=== PATIENT | female | born 2000 | race African-American/Black ===

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

== ENCOUNTER 2019-02-03 19:20 | Emergency (ER) | payer OTHER ==
[~2019-02-03] VITALS: Ht 175.3 cm; Wt 77.6 kg
[~2019-02-03 19:20] MED LIST changes: +NOHOMEMEDICATIONS
[2019-02-03 21:25] VITALS: BP 110/54
[2019-02-03] MEDS ORDERED: NAPROSYN500 MG PO (21:50)
[2019-02-03] MEDS ORDERED: AMOXICILLIN 50500 MG PO (21:50)
== END 2019-02-03 22:33 | disposition home or self-care (01) ==
LOC: ER 19:20
DX: B00.2 Herpesviral gingivostomatitis and pharyngotonsillitis (principal)

== ENCOUNTER 2019-07-01 08:56 | Emergency (ER) | payer OTHER ==
[~2019-07-01] VITALS: Ht 175.3 cm; Wt 75.3 kg
[~2019-07-01 08:56] MED LIST changes: +AMOXICILLIN 50500 MG PO; +NAPROSYN500 MG PO
[2019-07-01 09:58] LABS: URINE BILIRUBIN NEGATIVE (Negative); URINE BLOOD TRACE (Negative); URINE CLARITY CLOUDY; URINE COLOR YELLOW; URINE GLUCOSE-RANDOM* NEGATIVE (Negative); URINE KETONES NEGATIVE (Negative); URINE NITRITE-REFLEX NEGATIVE (Negative); URINE PROTEIN (DIPSTICK) NEGATIVE (Negative); URINE UROBILINOGEN 0.2 E.U./dl (0.2-1.0)
[2019-07-01 09:59] LABS: URINE LEUKOCYTES-REFLEX 2+ (Negative)
[2019-07-01 10:08] LABS: SQUAMOUS >10 Many /LPF (0-3)
[2019-07-01 10:09] LABS: CASTS None Seen /LPF (None Seen); CRYSTALS None Seen /LPF (None Seen); URINE RBC None Seen /HPF (0-2); URINE WBC-REFLEX 0-5 Rare /HPF (0-5)
[2019-07-01] MEDS ORDERED: PREDNISONE 20 M20 M1 PO (11:18)
[2019-07-01 11:41] VITALS: BP 111/65
== END 2019-07-01 11:42 | disposition home or self-care (01) ==
LOC: ER 08:56
PROVIDERS: Emergency Medicine
DX: N76.0 Acute vaginitis (principal)

== ENCOUNTER 2019-08-06 08:17 | Emergency (ER) | payer OTHER ==
[~2019-08-06] VITALS: Ht 175.3 cm; Wt 72.1 kg
[~2019-08-06 08:17] MED LIST changes: +PREDNISONE 20 M20 M1 PO
[2019-08-06 08:24] VITALS: BP 108/63
== END 2019-08-06 09:15 | disposition home or self-care (01) ==
LOC: ER 08:17
DX: S90.122A Contusion of left lesser toe(s) without damage to nail, initial encounter (principal); W22.8XXA Striking against or struck by other objects, initial encounter; Y93.02 Activity, running; Y92.89 Other specified places as the place of occurrence of the external cause; Y99.8 Other external cause status

== ENCOUNTER 2020-02-12 22:06 | Emergency (ER) | payer BC ==
[~2020-02-12] VITALS: Ht 172.7 cm; Wt 69.8 kg
[2020-02-12 22:36] LABS: ABSOLUTE NEUTROPHILS 6.7 thou/uL (1.4-8.2); EOSINOPHILS 1.1 % (0.0-3.0); HEMATOCRIT 39.4 % (37.0-47.0); HEMOGLOBIN 13.1 gm/dL (12.0-15.0); LYMPHOCYTES 19.2 % (24.0-44.0); MCH 26.6 pg (26.0-34.0); MCHC 33.4 g/dL (28.0-37.0); MCV 79.9 fL (80.0-100.0); MONOCYTES 8.6 % (1.0-8.0); PLATELET COUNT 460 thou/uL (150-400); POLYS 70.1 % (36.0-66.0); RBC 4.94 mil/uL (4.20-5.00); RDW 14.9 % (10.5-14.5); WBC 9.6 thou/uL (4.0-11.0)
[2020-02-12 22:42] LABS: CALCIUM 8.5 mg/dL (8.5-10.1); CREATININE 0.6 mg/dL (0.6-1.0); POTASSIUM 3.9 mmol/L (3.5-5.1)
[2020-02-12 22:49] LABS: ALBUMIN 3.8 g/dL (3.4-5.0); TOTAL BILIRUBIN 0.2 mg/dL (<0.1-1.0); TOTAL PROTEIN 8.6 g/dL (6.4-8.2)
[2020-02-12 22:55] LABS: URINE BILIRUBIN NEGATIVE (Negative); URINE BLOOD 3+ (Negative); URINE CLARITY CLEAR; URINE COLOR YELLOW; URINE GLUCOSE-RANDOM* NEGATIVE (Negative); URINE KETONES NEGATIVE (Negative); URINE LEUKOCYTES-REFLEX NEGATIVE (Negative); URINE NITRITE-REFLEX NEGATIVE (Negative); URINE PROTEIN (DIPSTICK) NEGATIVE (Negative); URINE UROBILINOGEN 0.2 E.U./dl (0.2-1.0)
[2020-02-12 23:19] LABS: CASTS None Seen /LPF (None Seen); MUCUS None Seen strn/LPF (None Seen); SQUAMOUS >10 Many /LPF (0-3); URINE RBC 3-10 Few /HPF (0-2); URINE WBC-REFLEX 0-5 Rare /HPF (0-5)
[2020-02-12 23:20] LABS: CRYSTALS None Seen /LPF (None Seen)
[2020-02-12 23:54] VITALS: BP 100/39
== END 2020-02-13 00:40 | disposition home or self-care (01) ==
LOC: ER 22:06
PROVIDERS: Emergency Medicine
DX: O20.9 Hemorrhage in early pregnancy, unspecified (principal); O26.891 Other specified pregnancy related conditions, first trimester; R42 Dizziness and giddiness; R10.30 Lower abdominal pain, unspecified; M54.9 Dorsalgia, unspecified; Z3A.01 Less than 8 weeks gestation of pregnancy

== ENCOUNTER 2021-01-16 12:28 | Emergency (ER) | payer OTHER ==
[~2021-01-16] VITALS: Ht 175.3 cm; Wt 89.4 kg
[2021-01-16 12:56] LABS: HEMATOCRIT 36.6 % (37.0-47.0); HEMOGLOBIN 12.1 gm/dL (12.0-15.0); MCH 25.2 pg (26.0-34.0); MCV 76.5 fL (80.0-100.0); RBC 4.79 mil/uL (4.20-5.00); RDW 15.2 % (10.5-14.5)
[2021-01-16 13:05] LABS: ANION GAP 11 mmol/L (7-16); BUN 11 mg/dL (7-18); CALCIUM 9.1 mg/dL (8.5-10.1); CHLORIDE 102 mmol/L (98-107); CO2 26 mmol/L (21-32); CREATININE 0.7 mg/dL (0.6-1.0); GLUCOSE 98 mg/dL (74-106); POTASSIUM 3.5 mmol/L (3.5-5.1); SODIUM 139 mmol/L (136-145)
[2021-01-16 13:14] LABS: ALBUMIN 3.7 g/dL (3.4-5.0); MAGNESIUM 1.9 mg/dL (1.8-2.4); SGOT 11 U/L (15-37); SGPT 15 U/L (14-59); TOTAL BILIRUBIN 0.5 mg/dL (0.2-1.0); TOTAL PROTEIN 8.5 g/dL (6.4-8.2); TROPONIN-I <0.06 ng/mL (<0.06)
[2021-01-16 14:08] VITALS: BP 100/67
--- NOTE | 2021-01-16 15:27 | EKG ---
[place] [address] [facility] [place] [address] ELECTROCARDIOGRAM REPORT Name: DANGELO LOVELACE Room #: DEP BO Merrill#: [id number] Admission: 01/16/21 Attend Phys: Discharge: 01/16/21 Date of : 89 Report #: [id number] [facility] Test Date: 2021-01-16 Test Time: 12:32:36 Pat Name: DANGELO LOVELACE Department: Room: Gender: F [employer]: PRADIP : 2000 Requested By: Lauren Perkins Order Number: [id number] MD: Raul Valladares Measurements Intervals Bee Rate: 86 P: 68 WV: 148 QRS: 50 QRSD: 94 T: -12 QT: 363 QTc: 434 Interpretive Statements Sinus rhythm Probable left atrial enlargement Borderline repolarization abnormality Baseline wander in lead(s) V4 No previous ECG available for comparison Electronically Signed On 01-16-2021 15:26:46 CDT by Raul Valladares [email or web address] <ELECTRONICALLY SIGNED> By: Raul Valladares MD 01/16/21 1526 1232 1232 MD MADONNA Spicer
== END 2021-01-16 14:09 | disposition home or self-care (01) ==
LOC: ER 12:28
PROVIDERS: Nurse Practitioner Family
DX: R06.00 Dyspnea, unspecified (principal)